=== PATIENT | male | born 1985 | race Caucasian/White ===

== ENCOUNTER 2020-12-03 07:26 | Inpatient (IN) | payer BC ==
[2020-12-03] MEDS ORDERED: Rocuronium Bromide 10 MG/ML (10ML VIAL) ONE (07:34)
[2020-12-03] MEDS ORDERED: fentaNYL Citrate/PF 2,000 MCG in Sodium Chloride 0.9% 60 ML IV SCH (07:45)
[2020-12-03] MEDS ORDERED: Cefepime 2 GM VIAL ONE (07:58)
[2020-12-03 08:17] LABS: ALT (SGPT) 193 U/L (8-55); AST (SGOT) 86 U/L (5-34); Alkaline Phosphatase 154 U/L (40-110); Anion Gap 23 mmol/L (10-20); BUN (Urea Nitrogen) 21 mg/dL (8.9-20.6); Bilirubin, Total 2.2 mg/dL (0.2-1.2); CK (CPK) 231 U/L (30-200); Calc. Creatinine Clearance 0 mL/min (70-130); Calcium 8.5 mg/dL (7.8-10.44); Carbon Dioxide 19 mmol/L (22-29); Chloride 99 mmol/L (98-107); Globulin 3.5 g/dL (2.4-3.5); Glucose 133 mg/dL (70-105); Lipase 40 U/L (8-78); Potassium 3.5 mmol/L (3.5-5.1); Protein, Total 7.5 g/dL (6.0-8.3); Sodium 137 mmol/L (136-145)
[2020-12-03] MEDS ORDERED: Dexamethasone 10 MG/ML VIAL ONE (08:24)
[2020-12-03] MEDS ORDERED: Aspirin 300 MG Suppository ONE (08:24)
[2020-12-03] MEDS ORDERED: Vancomycin 1 GM/200 ML BAG ONE (08:24)
[2020-12-03 08:33] LABS: Hemoglobin 17.1 g/dL (14.0-18.0); Mean Corpuscular HGB CONC 32.7 g/dL (32.0-36.0); Mean Corpuscular Hemoglobin 30.9 pg (27.0-31.0); Mean Corpuscular Volume 94.5 fL (78.0-98.0); Red Blood Cell (RBC) Count 5.53 mill/uL (4.70-6.10)
[2020-12-03] MEDS ORDERED: Aspirin Chewable 81 MG TAB ONE (08:33)
[2020-12-03] MEDS ORDERED: Enoxaparin Sodium 100 MG/ML SYRINGE ONE (08:33)
[2020-12-03 08:34] LABS: Actual Bicarbonate (HCO3a) 25.8 mEq/L (22-28); Analyzer IN Cardio ER; Base Excess (BEa) -5.2 mEq/L (-2.0 to +3.0); Carboxyhemoglobin (COHb) 0.2 gm% (0.0-3.0); Hemoglobin (Hb) 17.6 g/dL (14.0-18.0); O2 Tension (PaO2), arterial 97.7 mmHg (80.0-100.0); Potassium - ABG Lab 3.68 mmol/L (3.70-5.30)
[2020-12-03 08:45] LABS: CO2 Tension 74.1 mmHg (35.0-45.0); Puncture Site RRA; pH, Arterial 7.16 (7.35-7.45)
[2020-12-03 08:46] LABS: ALV-art Gradient 522.675 mmHg (0-20)
[2020-12-03 08:52] LABS: Band 11 % (5-11); Lymphocytes 11 % (21-51); MDiff Complete? YES; Mean Platelet Volume 8.7 fL (7.4-10.4); Monocytes 4 % (0-10); Myelocyte 1 % (0-0); Neutrophil 68 % (42-75); Platelet Count 117 thou/uL (130-400); Platelet Morphology Comment Appears Decreased; RBC Distribution Width 11.6 % (11.5-14.5); RBC Morphology Normal; Reactive Lymphocytes 5 % (0-10)
[2020-12-03 09:05] LABS: CKMB 0.9 ng/mL (0-6.6)
[2020-12-03] MEDS ORDERED: Propofol 1,000 MG/100 ML VIAL IV ONE (09:16)
[2020-12-03] MEDS ORDERED: Communication Order-Pharmacy FS ONE (09:31)
[2020-12-03] MEDS ORDERED: ABX IVPB PRN (09:32)
[2020-12-03] MEDS ORDERED: Acetaminophen 650 MG/20.3 ML UDCUP PO PRN (09:37)
[2020-12-03] MEDS ORDERED: Acetaminophen 650 MG Suppository PR PRN (09:37)
[2020-12-03] MEDS ORDERED: Bisacodyl 10 MG SUPP PR PRN (09:37)
[2020-12-03] MEDS ORDERED: Electrolyte Replacement Protocol 1 EACH IVPB ONE (09:37)
[2020-12-03] MEDS ORDERED: Sodium Chloride 0.9% 1,000 ML IV SCH (09:45)
[2020-12-03] MEDS ORDERED: Ventilator Sedation Protocol 1 EACH FS SCH (09:45)
[2020-12-03] MEDS ORDERED: Vecuronium 10 MG VIAL ONE ×2 (09:46→12:12)
[2020-12-03] MEDS ORDERED: Sterile Water 10 ML ONE ×2 (09:47→19:57)
[2020-12-03 09:48] LABS: INR-International Normal Ratio 1.5; PTT 28.8 sec (22.9-36.1)
[2020-12-03] MEDS ORDERED: Fentanyl BOLUS 250 ML IVPB PRN (10:00)
[2020-12-03] MEDS ORDERED: Morphine 2 MG/ML VIAL SLOW IVP PRN (10:00)
[2020-12-03] MEDS ORDERED: Propofol BOLUS 1,000 MG/100 ML VIAL IV PRN (10:00)
[2020-12-03 11:18] LABS: Actual Bicarbonate (HCO3a) 25.4 mEq/L (22-28); Base Excess (BEa) -4.3 mEq/L (-2.0 to +3.0); Calcium, Ionized (arterial) 1.08 mmol/L (1.12-1.30); Carboxyhemoglobin (COHb) 0.5 gm% (0.0-3.0); Hemoglobin (Hb) 16.3 g/dL (14.0-18.0); O2 Tension (PaO2), arterial 92.1 mmHg (80.0-100.0); Potassium - ABG Lab 4.37 mmol/L (3.70-5.30)
[2020-12-03 11:20] LABS: ALV-art Gradient 324.375 mmHg (0-20); CO2 Tension 66.1 mmHg (35.0-45.0); Puncture Site RRA
[2020-12-03] MEDS ORDERED: Electrolyte Replacement Protocol FS PRN (11:30)
[2020-12-03 11:33] LABS: Magnesium 2.2 mg/dL (1.6-2.6); Phosphorus 4.7 mg/dL (2.3-4.7)
[2020-12-03] MEDS: Lactated Ringer's 500 ML IV SCH ×2 (11:45→20:09)
[2020-12-03] MEDS: Propofol 1,000 MG/100 ML VIAL IV PRN ×3 (11:45→20:08)
[2020-12-03] MEDS ORDERED: Potassium Chloride 40 MEQ in Sodium Chloride 0.9% 250 ML 250 ML IVPB SCH (12:00)
[2020-12-03] MEDS ORDERED: Vecuronium 10 MG VIAL IV SCH (12:15)
[2020-12-03] MEDS: Lorazepam 2 MG/ML VIAL SLOW IVP PRN (12:16)
[2020-12-03] MEDS: Aspirin Chewable 81 MG TAB PO SCH (13:00)
[2020-12-03] MEDS ORDERED: Iopamidol-370 76% 500 ML 1 ML ONE (13:28)
[2020-12-03] MEDS: Vecuronium 10 MG VIAL IV PRN ×3 (14:09→23:23)
[2020-12-03] MEDS: VANCOMYCIN 1.75 GM/350 ML BAG 1.75 GM in Premix Bag 1 BAG IVPB SCH (16:02)
[2020-12-03] MEDS ORDERED: Insulin Regular 300 UNITS/3 ML VIAL SC PRN (16:03)
[2020-12-03] MEDS ORDERED: Dextrose 5% in Water 1,000 ML IV PRN (16:03)
[2020-12-03] MEDS ORDERED: Dextrose 50% Abboject 50 ML SYRINGE SLOW IVP PRN (16:03)
[2020-12-03] MEDS: Insulin Regular 300 UNITS/3 ML VIAL SC PRN (16:17)
[2020-12-03 18:35] LABS: Hemoglobin 14.8 g/dL (14.0-18.0); Platelet Count 79 thou/uL (130-400)
[2020-12-03 18:49] LABS: Anion Gap 11 mmol/L (10-20); BUN (Urea Nitrogen) 17 mg/dL (8.9-20.6); Calc. Creatinine Clearance 176 mL/min (70-130); Calcium 7.6 mg/dL (7.8-10.44); Carbon Dioxide 23 mmol/L (22-29); Chloride 106 mmol/L (98-107); Glucose 168 mg/dL (70-105); Potassium 6.1 mmol/L (3.5-5.1); Sodium 134 mmol/L (136-145)
[2020-12-03] MEDS ORDERED: Fentanyl CADD 100 ML ONE (19:58)
[2020-12-03] MEDS: Cefepime 2 GM in Sodium Chloride 0.9% 100 ML IVPB SCH (20:08)
[2020-12-03] MEDS: Fentanyl CADD 100 ML IV SCH (20:08)
[2020-12-03] MEDS: Pantoprazole 40 MG VIAL IVP SCH (20:08)
[2020-12-03 20:12] LABS: Fibrinogen 363 mg/dL (253-463)
[2020-12-03 20:13] LABS: INR-International Normal Ratio 1.6; PTT 37.6 sec (22.9-36.1); Prothrombin Time 18.6 sec (12.0-14.7)
[2020-12-03 20:29] LABS: D-Dimer Test Greater than 20.00 *mcg/mL (0.27-0.43)
[2020-12-03 20:49] LABS: FSP-Qualitative ABNORMAL (Normal); FSP-Semiquantitative >320 mcg/mL (Less than 5)
[2020-12-03 20:50] LABS: Platelet Count 76 thou/uL (130-400)
[2020-12-03] MEDS ORDERED: Famotidine 40 MG/5 ML Oral Suspension PER TUBE SCH (21:00)
[2020-12-03] MEDS ORDERED: Enoxaparin Sodium 100 MG/ML SYRINGE SC SCH (21:00)
[2020-12-03] MEDS ORDERED: Famotidine/PF 20 mg/2ml Vial SLOW IVP SCH (21:00)
[2020-12-03] MEDS ORDERED: Pantoprazole 40 MG VIAL IVP SCH (21:00)
[2020-12-03 22:06] LABS: Potassium 5.8 mmol/L (3.5-5.1)
[2020-12-03] MEDS ORDERED: Insulin Regular 300 UNITS/3 ML VIAL IVP SCH (22:30)
[2020-12-03] MEDS ORDERED: Calcium Gluconate 4.6 MEQ in Sodium Chloride 0.9% 100 ML IVPB SCH (22:30)
[2020-12-03] MEDS ORDERED: Dextrose 50% Abboject 50 ML SYRINGE SLOW IVP SCH (22:30)
[2020-12-03] MEDS ORDERED: Furosemide 20 MG/2 ML VIAL SLOW IVP SCH (22:30)
[2020-12-04] MEDS ORDERED: Sterile Water 10 ML ONE ×3 (00:35→20:53)
[2020-12-04] MEDS: Propofol 1,000 MG/100 ML VIAL IV PRN ×4 (00:44→20:47)
[2020-12-04] MEDS: Vecuronium 10 MG VIAL IV PRN ×9 (00:44→20:48)
[2020-12-04] MEDS: VANCOMYCIN 1.75 GM/350 ML BAG 1.75 GM in Premix Bag 1 BAG IVPB SCH ×3 (00:44→15:46)
[2020-12-04 04:21] LABS: Hemoglobin 14.7 g/dL (14.0-18.0); Mean Corpuscular HGB CONC 33.9 g/dL (32.0-36.0); Mean Corpuscular Hemoglobin 32.1 pg (27.0-31.0); Mean Corpuscular Volume 94.8 fL (78.0-98.0); Mean Platelet Volume 9.4 fL (7.4-10.4); Platelet Count 99 thou/uL (130-400); RBC Distribution Width 11.7 % (11.5-14.5); Red Blood Cell (RBC) Count 4.57 mill/uL (4.70-6.10); White Blood Cell (WBC) Count 14.9 thou/uL (4.8-10.8)
[2020-12-04 04:35] LABS: ALT (SGPT) 121 U/L (8-55); AST (SGOT) 36 U/L (5-34); Albumin 3.2 g/dL (3.5-5.0); Alkaline Phosphatase 102 U/L (40-110); Anion Gap 11 mmol/L (10-20); BUN (Urea Nitrogen) 16 mg/dL (8.9-20.6); CRP (Inflammatory) 20.26 mg/dL (= or < 0.5); Calc. Creatinine Clearance 181 mL/min (70-130); Calcium 8.3 mg/dL (7.8-10.44); Carbon Dioxide 25 mmol/L (22-29); Chloride 104 mmol/L (98-107); Glucose 98 mg/dL (70-105); Potassium 5.2 mmol/L (3.5-5.1); Protein, Total 6.2 g/dL (6.0-8.3); Sodium 135 mmol/L (136-145)
[2020-12-04 04:36] LABS: Magnesium 2.5 mg/dL (1.6-2.6)
[2020-12-04 04:39] LABS: Critical Call Chem Troponin I RESULT DECREASING
[2020-12-04 04:48] LABS: Fibrinogen 378 mg/dL (253-463)
[2020-12-04 04:50] LABS: INR-International Normal Ratio 1.3; PTT 32.3 sec (22.9-36.1); Prothrombin Time 16.5 sec (12.0-14.7)
[2020-12-04 05:03] LABS: CKMB 7.6 ng/mL (0-6.6)
[2020-12-04] MEDS: Lactated Ringer's 500 ML IV SCH ×2 (05:53→17:57)
[2020-12-04 06:19] LABS: Band 18 % (5-11); Lymphocytes 4 % (21-51); MDiff Complete? YES; Monocytes 7 % (0-10); Neutrophil 71 % (42-75); Platelet Morphology Comment Appears Decreased
[2020-12-04 06:20] LABS: Band 18 % (5-11); Hemoglobin 14.7 g/dL (14.0-18.0); Lymphocytes 4 % (21-51); MDiff Complete? YES; Mean Corpuscular HGB CONC 33.6 g/dL (32.0-36.0); Mean Corpuscular Hemoglobin 31.9 pg (27.0-31.0); Mean Platelet Volume 9.2 fL (7.4-10.4); Monocytes 7 % (0-10); Neutrophil 71 % (42-75); Platelet Count 94 thou/uL (130-400); Platelet Morphology Comment Appears Decreased; RBC Distribution Width 11.7 % (11.5-14.5); Red Blood Cell (RBC) Count 4.62 mill/uL (4.70-6.10)
[2020-12-04 06:33] LABS: D-Dimer Test Greater than 20.00 *mcg/mL (0.27-0.43)
[2020-12-04 07:55] LABS: Actual Bicarbonate (HCO3a) 21.7 mEq/L (22-28); Analyzer IN Cardio ER; Base Excess (BEa) -3.5 mEq/L (-2.0 to +3.0); Calcium, Ionized (arterial) 1.19 mmol/L (1.12-1.30); Carboxyhemoglobin (COHb) 0.3 gm% (0.0-3.0); O2 Tension (PaO2), arterial 76.1 mmHg (80.0-100.0); Potassium - ABG Lab 4.65 mmol/L (3.70-5.30); pH, Arterial 7.35 (7.35-7.45)
[2020-12-04 08:00] LABS: Hemoglobin (Hb) 20.1 g/dL (14.0-18.0); Puncture Site RRA
[2020-12-04] MEDS: Pantoprazole 40 MG VIAL IVP SCH ×2 (08:02→20:51)
[2020-12-04] MEDS: Enoxaparin Sodium 100 MG/ML SYRINGE SC SCH ×2 (08:02→20:48)
[2020-12-04] MEDS: Lorazepam 2 MG/ML VIAL SLOW IVP PRN ×5 (08:02→17:58)
[2020-12-04] MEDS: Dexamethasone 10 MG/ML VIAL SLOW IVP SCH (08:02)
[2020-12-04] MEDS: Ascorbic Acid 500 mg Chewable Tablet PER TUBE SCH (08:03)
[2020-12-04] MEDS: Cholecalciferol 1,000 UNITS (25 MCG) TAB PER TUBE SCH (08:03)
[2020-12-04] MEDS: Zinc Sulfate 220 MG CAP PER TUBE SCH (08:03)
[2020-12-04] MEDS: Cefepime 2 GM in Sodium Chloride 0.9% 100 ML IVPB SCH ×2 (08:03→20:49)
[2020-12-04 08:36] LABS: Vancomycin, Trough 17.7 ug/mL
[2020-12-04] MEDS: Aspirin Chewable 81 MG TAB PO SCH (12:44)
[2020-12-04 12:55] LABS: Hemoglobin 13.9 g/dL (14.0-18.0); Platelet Count 135 thou/uL (130-400)
[2020-12-04] MEDS ORDERED: Fentanyl CADD 100 ML ONE (13:02)
[2020-12-04 18:14] LABS: Hemoglobin 13.7 g/dL (14.0-18.0); Mean Corpuscular Hemoglobin 31.4 pg (27.0-31.0); Platelet Count 137 thou/uL (130-400); RBC Distribution Width 11.6 % (11.5-14.5); Red Blood Cell (RBC) Count 4.37 mill/uL (4.70-6.10); White Blood Cell (WBC) Count 14.4 thou/uL (4.8-10.8)
[2020-12-04 18:26] LABS: Anion Gap 11 mmol/L (10-20); BUN (Urea Nitrogen) 18 mg/dL (8.9-20.6); Calc. Creatinine Clearance 191 mL/min (70-130); Calcium 7.8 mg/dL (7.8-10.44); Carbon Dioxide 20 mmol/L (22-29); Chloride 107 mmol/L (98-107); Glucose 105 mg/dL (70-105); Potassium 5.3 mmol/L (3.5-5.1); Sodium 133 mmol/L (136-145)
[2020-12-04 18:54] LABS: Band 11 % (5-11); Lymphocytes 2 % (21-51); MDiff Complete? YES; Monocytes 5 % (0-10); Neutrophil 82 % (42-75); Platelet Morphology Comment Appears Adequate; Polychromasia SLIGHT = 2-3 cells (100X) (0-2/hpf)
[2020-12-04] MEDS: Senokot S 8.6-50 MG TAB PO SCH (20:51)
[2020-12-05] MEDS ORDERED: Sterile Water 10 ML ONE ×3 (00:35→06:30)
[2020-12-05] MEDS: Vecuronium 10 MG VIAL IV PRN ×5 (00:37→08:26)
[2020-12-05] MEDS: VANCOMYCIN 1.75 GM/350 ML BAG 1.75 GM in Premix Bag 1 BAG IVPB SCH ×2 (00:39→07:52)
[2020-12-05] MEDS: Propofol 1,000 MG/100 ML VIAL IV PRN ×6 (02:56→22:48)
[2020-12-05] MEDS: Lactated Ringer's 500 ML IV SCH (02:56)
[2020-12-05] MEDS ORDERED: Fentanyl CADD 100 ML ONE ×2 (04:02→17:20)
[2020-12-05] MEDS: Fentanyl CADD 100 ML IV SCH ×2 (04:33→17:29)
[2020-12-05] MEDS: Dexamethasone 10 MG/ML VIAL SLOW IVP SCH (07:52)
[2020-12-05] MEDS: Lorazepam 2 MG/ML VIAL SLOW IVP PRN ×2 (07:52→11:12)
[2020-12-05] MEDS: Ascorbic Acid 500 mg Chewable Tablet PER TUBE SCH (07:53)
[2020-12-05] MEDS: Zinc Sulfate 220 MG CAP PER TUBE SCH (07:53)
[2020-12-05] MEDS: Senokot S 8.6-50 MG TAB PO SCH ×2 (07:53→21:06)
[2020-12-05] MEDS: Polyethylene Glycol 3350 17 GM Packet PER TUBE SCH (07:53)
[2020-12-05] MEDS: Cefepime 2 GM in Sodium Chloride 0.9% 100 ML IVPB SCH ×2 (07:53→21:06)
[2020-12-05] MEDS: Pantoprazole 40 MG VIAL IVP SCH ×2 (07:54→21:10)
[2020-12-05] MEDS: Enoxaparin Sodium 100 MG/ML SYRINGE SC SCH ×2 (07:54→21:08)
[2020-12-05 08:24] LABS: Actual Bicarbonate (HCO3a) 22.6 mEq/L (22-28); Base Excess (BEa) -2.3 mEq/L (-2.0 to +3.0); CO2 Tension 39.5 mmHg (35.0-45.0); Calcium, Ionized (arterial) 1.13 mmol/L (1.12-1.30); O2 Tension (PaO2), arterial 72.9 mmHg (80.0-100.0); Potassium - ABG Lab 4.24 mmol/L (3.70-5.30); pH, Arterial 7.38 (7.35-7.45)
[2020-12-05] MEDS: Cholecalciferol 1,000 UNITS (25 MCG) TAB PER TUBE SCH (10:22)
[2020-12-05 10:41] LABS: ALV-art Gradient 162.925 mmHg (0-20); Puncture Site RRA
[2020-12-05] MEDS ORDERED: Dexamethasone 4 mg/ml Vial SLOW IVP SCH (10:45)
[2020-12-05] MEDS ORDERED: Furosemide 20 MG/2 ML VIAL SLOW IVP SCH (10:45)
[2020-12-05 11:23] LABS: Hemoglobin 13.8 g/dL (14.0-18.0); Mean Corpuscular HGB CONC 34.4 g/dL (32.0-36.0); Mean Corpuscular Hemoglobin 31.8 pg (27.0-31.0); Mean Corpuscular Volume 92.5 fL (78.0-98.0); Mean Platelet Volume 7.4 fL (7.4-10.4); Platelet Count 237 thou/uL (130-400); RBC Distribution Width 11.2 % (11.5-14.5); Red Blood Cell (RBC) Count 4.36 mill/uL (4.70-6.10); White Blood Cell (WBC) Count 10.9 thou/uL (4.8-10.8)
[2020-12-05 11:41] LABS: ALT (SGPT) 78 U/L (8-55); AST (SGOT) 40 U/L (5-34); Albumin 2.9 g/dL (3.5-5.0); Alkaline Phosphatase 81 U/L (40-110); Anion Gap 11 mmol/L (10-20); BUN (Urea Nitrogen) 25 mg/dL (8.9-20.6); Calc. Creatinine Clearance 196 mL/min (70-130); Carbon Dioxide 22 mmol/L (22-29); Chloride 106 mmol/L (98-107); Globulin 2.8 g/dL (2.4-3.5); Glucose 114 mg/dL (70-105); Magnesium 2.1 mg/dL (1.6-2.6); Phosphorus 3.3 mg/dL (2.3-4.7); Potassium 4.4 mmol/L (3.5-5.1); Protein, Total 5.7 g/dL (6.0-8.3); Sodium 135 mmol/L (136-145)
[2020-12-05 11:42] LABS: Band 5 % (5-11); Lymphocytes 3 % (21-51); MDiff Complete? YES; Monocytes 2 % (0-10); Neutrophil 87 % (42-75); Platelet Morphology Comment Appears Adequate; RBC Morphology Normal; Reactive Lymphocytes 3 % (0-10)
[2020-12-05] MEDS: Aspirin Chewable 81 MG TAB PO SCH (14:07)
[2020-12-06] MEDS: Propofol 1,000 MG/100 ML VIAL IV PRN ×6 (01:45→23:15)
[2020-12-06 05:08] LABS: Hemoglobin 14.5 g/dL (14.0-18.0); Mean Corpuscular HGB CONC 34.9 g/dL (32.0-36.0); Mean Corpuscular Hemoglobin 32.2 pg (27.0-31.0); Mean Corpuscular Volume 92.5 fL (78.0-98.0); Mean Platelet Volume 7.8 fL (7.4-10.4); Platelet Count 270 thou/uL (130-400); RBC Distribution Width 11.4 % (11.5-14.5); Red Blood Cell (RBC) Count 4.51 mill/uL (4.70-6.10); White Blood Cell (WBC) Count 13.9 thou/uL (4.8-10.8)
[2020-12-06] MEDS ORDERED: Fentanyl CADD 100 ML ONE ×2 (05:12→16:08)
[2020-12-06 05:19] LABS: ALT (SGPT) 91 U/L (8-55); AST (SGOT) 63 U/L (5-34); Albumin 3.2 g/dL (3.5-5.0); Alkaline Phosphatase 88 U/L (40-110); Anion Gap 12 mmol/L (10-20); BUN (Urea Nitrogen) 24 mg/dL (8.9-20.6); Bilirubin, Total 1.6 mg/dL (0.2-1.2); Calc. Creatinine Clearance 179 mL/min (70-130); Calcium 8.1 mg/dL (7.8-10.44); Carbon Dioxide 24 mmol/L (22-29); Chloride 104 mmol/L (98-107); Globulin 2.8 g/dL (2.4-3.5); Glucose 105 mg/dL (70-105); Magnesium 2.4 mg/dL (1.6-2.6); Phosphorus 3.3 mg/dL (2.3-4.7); Potassium 4.8 mmol/L (3.5-5.1); Sodium 135 mmol/L (136-145)
[2020-12-06 05:37] LABS: Band 6 % (5-11); Lymphocytes 3 % (21-51); MDiff Complete? YES; Monocytes 6 % (0-10); Neutrophil 84 % (42-75); Reactive Lymphocytes 1 % (0-10)
[2020-12-06 08:12] LABS: Actual Bicarbonate (HCO3a) 26.7 mEq/L (22-28); Base Excess (BEa) 2.4 mEq/L (-2.0 to +3.0); CO2 Tension 40.5 mmHg (35.0-45.0); Calcium, Ionized (arterial) 1.13 mmol/L (1.12-1.30); Carboxyhemoglobin (COHb) 0.8 gm% (0.0-3.0); Hemoglobin (Hb) 14.6 g/dL (14.0-18.0); Potassium - ABG Lab 4.25 mmol/L (3.70-5.30); pH, Arterial 7.44 (7.35-7.45)
[2020-12-06 08:16] LABS: ALV-art Gradient 174.975 mmHg (0-20); O2 Tension (PaO2), arterial 59.6 mmHg (80.0-100.0); Puncture Site RRA
[2020-12-06] MEDS: Enoxaparin Sodium 100 MG/ML SYRINGE SC SCH (08:42)
[2020-12-06] MEDS: Cefepime 2 GM in Sodium Chloride 0.9% 100 ML IVPB SCH ×2 (08:43→21:17)
[2020-12-06] MEDS: Polyethylene Glycol 3350 17 GM Packet PER TUBE SCH (08:43)
[2020-12-06] MEDS: Senokot S 8.6-50 MG TAB PO SCH ×2 (08:44→21:17)
[2020-12-06] MEDS: Zinc Sulfate 220 MG CAP PER TUBE SCH (08:44)
[2020-12-06] MEDS: Pantoprazole 40 MG VIAL IVP SCH ×2 (08:44→21:17)
[2020-12-06] MEDS: Dexamethasone 20 MG in Sodium Chloride 0.9% 50 ML IVPB SCH (08:44)
[2020-12-06] MEDS: Lorazepam 2 MG/ML VIAL SLOW IVP PRN ×3 (09:37→21:47)
[2020-12-06] MEDS: Vecuronium 10 MG VIAL IV PRN ×3 (13:41→21:47)
[2020-12-06] MEDS: Aspirin Chewable 81 MG TAB PO SCH (14:24)
[2020-12-06] MEDS: Fentanyl CADD 100 ML IV SCH (16:08)
[2020-12-07] MEDS: Propofol 1,000 MG/100 ML VIAL IV PRN ×7 (03:01→22:17)
[2020-12-07] MEDS: Lorazepam 2 MG/ML VIAL SLOW IVP PRN ×3 (03:52→22:18)
[2020-12-07] MEDS: Vecuronium 10 MG VIAL IV PRN ×4 (03:52→22:18)
[2020-12-07] MEDS ORDERED: Fentanyl CADD 100 ML ONE (04:06)
[2020-12-07 05:24] LABS: Band 3 % (5-11); Hemoglobin 14.8 g/dL (14.0-18.0); Lymphocytes 13 % (21-51); MDiff Complete? YES; Mean Corpuscular HGB CONC 34.8 g/dL (32.0-36.0); Mean Corpuscular Hemoglobin 32.3 pg (27.0-31.0); Mean Corpuscular Volume 92.8 fL (78.0-98.0); Mean Platelet Volume 7.4 fL (7.4-10.4); Monocytes 14 % (0-10); Neutrophil 70 % (42-75); Platelet Count 324 thou/uL (130-400); Platelet Morphology Comment Appears Adequate; RBC Distribution Width 11.4 % (11.5-14.5); RBC Morphology Normal; Red Blood Cell (RBC) Count 4.59 mill/uL (4.70-6.10); White Blood Cell (WBC) Count 14.8 thou/uL (4.8-10.8)
[2020-12-07 05:28] LABS: ALT (SGPT) 149 U/L (8-55); AST (SGOT) 79 U/L (5-34); Albumin 3.1 g/dL (3.5-5.0); Alkaline Phosphatase 85 U/L (40-110); Anion Gap 10 mmol/L (10-20); BUN (Urea Nitrogen) 23 mg/dL (8.9-20.6); Bilirubin, Total 1.4 mg/dL (0.2-1.2); Calc. Creatinine Clearance 172 mL/min (70-130); Carbon Dioxide 27 mmol/L (22-29); Chloride 103 mmol/L (98-107); Globulin 2.5 g/dL (2.4-3.5); Glucose 89 mg/dL (70-105); Magnesium 2.2 mg/dL (1.6-2.6); Phosphorus 2.9 mg/dL (2.3-4.7); Potassium 4.3 mmol/L (3.5-5.1); Protein, Total 5.6 g/dL (6.0-8.3); Sodium 136 mmol/L (136-145)
[2020-12-07] MEDS: Cefepime 2 GM in Sodium Chloride 0.9% 100 ML IVPB SCH ×2 (07:46→20:59)
[2020-12-07] MEDS: Polyethylene Glycol 3350 17 GM Packet PER TUBE SCH (07:47)
[2020-12-07] MEDS: Zinc Sulfate 220 MG CAP PER TUBE SCH (07:47)
[2020-12-07] MEDS: Senokot S 8.6-50 MG TAB PO SCH ×2 (07:47→21:02)
[2020-12-07] MEDS: Pantoprazole 40 MG VIAL IVP SCH ×2 (07:48→21:01)
[2020-12-07 08:03] LABS: Actual Bicarbonate (HCO3a) 26.8 mEq/L (22-28); Base Excess (BEa) 1.9 mEq/L (-2.0 to +3.0); CO2 Tension 42.7 mmHg (35.0-45.0); Calcium, Ionized (arterial) 1.13 mmol/L (1.12-1.30); Carboxyhemoglobin (COHb) 0.8 gm% (0.0-3.0); Hemoglobin (Hb) 14.9 g/dL (14.0-18.0); Potassium - ABG Lab 3.96 mmol/L (3.70-5.30); pH, Arterial 7.42 (7.35-7.45)
[2020-12-07 08:04] LABS: O2 Tension (PaO2), arterial 55.7 mmHg (80.0-100.0); Puncture Site LRA
[2020-12-07 08:05] LABS: ALV-art Gradient 140.475 mmHg (0-20)
[2020-12-07] MEDS: Dexamethasone 20 MG in Sodium Chloride 0.9% 50 ML IVPB SCH (09:19)
[2020-12-07] MEDS ORDERED: Enoxaparin Sodium 100 MG/ML SYRINGE SC SCH ×2 (10:00→10:30)
[2020-12-07] MEDS: Fentanyl CADD 100 ML IV SCH (13:49)
[2020-12-07] MEDS: Aspirin Chewable 81 MG TAB PO SCH (14:13)
[2020-12-07] MEDS: Enoxaparin Sodium 100 MG/ML SYRINGE SC SCH (21:01)
[2020-12-08] MEDS: Vecuronium 10 MG VIAL IV PRN ×5 (00:06→08:53)
[2020-12-08] MEDS: Lorazepam 2 MG/ML VIAL SLOW IVP PRN ×9 (00:06→19:33)
[2020-12-08] MEDS ORDERED: Fentanyl CADD 100 ML ONE ×3 (01:52→23:33)
[2020-12-08] MEDS: Propofol 1,000 MG/100 ML VIAL IV PRN ×5 (02:44→23:37)
[2020-12-08 04:25] LABS: Hemoglobin 13.3 g/dL (14.0-18.0); Mean Corpuscular HGB CONC 36.1 g/dL (32.0-36.0); Mean Corpuscular Volume 91.5 fL (78.0-98.0); Mean Platelet Volume 7.3 fL (7.4-10.4); Platelet Count 320 thou/uL (130-400); RBC Distribution Width 11.4 % (11.5-14.5); Red Blood Cell (RBC) Count 4.02 mill/uL (4.70-6.10)
[2020-12-08 04:34] LABS: ALT (SGPT) 198 U/L (8-55); AST (SGOT) 82 U/L (5-34); Albumin 2.9 g/dL (3.5-5.0); Alkaline Phosphatase 76 U/L (40-110); Anion Gap 7 mmol/L (10-20); BUN (Urea Nitrogen) 13 mg/dL (8.9-20.6); Bilirubin, Total 1.1 mg/dL (0.2-1.2); Calc. Creatinine Clearance 203 mL/min (70-130); Calcium 7.6 mg/dL (7.8-10.44); Carbon Dioxide 26 mmol/L (22-29); Chloride 106 mmol/L (98-107); Globulin 2.2 g/dL (2.4-3.5); Glucose 89 mg/dL (70-105); Magnesium 2.1 mg/dL (1.6-2.6); Phosphorus 2.9 mg/dL (2.3-4.7); Protein, Total 5.1 g/dL (6.0-8.3); Sodium 135 mmol/L (136-145)
[2020-12-08 04:44] LABS: Band 1 % (5-11); Eosinophils 3 % (0-10); Lymphocytes 19 % (21-51); MDiff Complete? YES; Metamyelocyte 2 % (0-0); Monocytes 8 % (0-10); Myelocyte 2 % (0-0); Neutrophil 65 % (42-75); Platelet Morphology Comment Appears Adequate
[2020-12-08] MEDS: Pantoprazole 40 MG VIAL IVP SCH ×2 (07:53→20:12)
[2020-12-08] MEDS: Senokot S 8.6-50 MG TAB PO SCH ×2 (07:53→20:12)
[2020-12-08] MEDS: Polyethylene Glycol 3350 17 GM Packet PER TUBE SCH (07:53)
[2020-12-08] MEDS: Zinc Sulfate 220 MG CAP PER TUBE SCH (07:53)
[2020-12-08 08:08] LABS: Actual Bicarbonate (HCO3a) 23.2 mEq/L (22-28); Base Excess (BEa) 0.8 mEq/L (-2.0 to +3.0); CO2 Tension 30.9 mmHg (35.0-45.0); Calcium, Ionized (arterial) 1.11 mmol/L (1.12-1.30); Carboxyhemoglobin (COHb) 0.6 gm% (0.0-3.0); Hemoglobin (Hb) 13.8 g/dL (14.0-18.0); O2 Tension (PaO2), arterial 62.3 mmHg (80.0-100.0); Potassium - ABG Lab 3.81 mmol/L (3.70-5.30); pH, Arterial 7.49 (7.35-7.45)
[2020-12-08] MEDS: Cefepime 2 GM in Sodium Chloride 0.9% 100 ML IVPB SCH ×2 (08:20→20:11)
[2020-12-08] MEDS: Enoxaparin Sodium 100 MG/ML SYRINGE SC SCH ×2 (08:25→20:11)
[2020-12-08 08:36] LABS: Puncture Site LBA
[2020-12-08 08:37] LABS: ALV-art Gradient 148.625 mmHg (0-20)
[2020-12-08] MEDS: Dexamethasone 20 MG in Sodium Chloride 0.9% 50 ML IVPB SCH (08:52)
[2020-12-08] MEDS: Fentanyl CADD 100 ML IV SCH ×2 (12:50→23:37)
[2020-12-08] MEDS: Aspirin Chewable 81 MG TAB PO SCH (14:17)
[2020-12-08] MEDS: Insulin Regular 300 UNITS/3 ML VIAL SC PRN (17:18)
[2020-12-09] MEDS: Lorazepam 2 MG/ML VIAL SLOW IVP PRN ×2 (03:50→22:27)
[2020-12-09] MEDS: Propofol 1,000 MG/100 ML VIAL IV PRN ×4 (04:28→18:07)
[2020-12-09 04:41] LABS: Band 7 % (5-11); Eosinophils 1 % (0-10); Hemoglobin 13.3 g/dL (14.0-18.0); Lymphocytes 16 % (21-51); MDiff Complete? YES; Mean Corpuscular HGB CONC 34.5 g/dL (32.0-36.0); Mean Corpuscular Hemoglobin 31.6 pg (27.0-31.0); Mean Corpuscular Volume 91.5 fL (78.0-98.0); Mean Platelet Volume 7.3 fL (7.4-10.4); Monocytes 8 % (0-10); Myelocyte 4 % (0-0); Neutrophil 64 % (42-75); Platelet Count 365 thou/uL (130-400); Platelet Morphology Comment Appears Adequate; RBC Distribution Width 11.5 % (11.5-14.5); White Blood Cell (WBC) Count 16.3 thou/uL (4.8-10.8)
[2020-12-09 04:44] LABS: ALT (SGPT) 258 U/L (8-55); AST (SGOT) 67 U/L (5-34); Alkaline Phosphatase 80 U/L (40-110); Anion Gap 10 mmol/L (10-20); BUN (Urea Nitrogen) 25 mg/dL (8.9-20.6); Bilirubin, Total 0.9 mg/dL (0.2-1.2); Calc. Creatinine Clearance 208 mL/min (70-130); Carbon Dioxide 23 mmol/L (22-29); Chloride 106 mmol/L (98-107); Globulin 2.4 g/dL (2.4-3.5); Glucose 94 mg/dL (70-105); Potassium 4.2 mmol/L (3.5-5.1); Protein, Total 5.4 g/dL (6.0-8.3); Sodium 135 mmol/L (136-145)
[2020-12-09 08:13] LABS: Actual Bicarbonate (HCO3a) 21.1 mEq/L (22-28); Base Excess (BEa) -2.1 mEq/L (-2.0 to +3.0); CO2 Tension 31.9 mmHg (35.0-45.0); Calcium, Ionized (arterial) 1.13 mmol/L (1.12-1.30); Carboxyhemoglobin (COHb) 0.5 gm% (0.0-3.0); Hemoglobin (Hb) 14.4 g/dL (14.0-18.0); O2 Tension (PaO2), arterial 60.2 mmHg (80.0-100.0); Potassium - ABG Lab 4.12 mmol/L (3.70-5.30); pH, Arterial 7.44 (7.35-7.45)
[2020-12-09 09:25] LABS: Puncture Site LRA
[2020-12-09 09:26] LABS: ALV-art Gradient 149.475 mmHg (0-20)
[2020-12-09] MEDS: Cefepime 2 GM in Sodium Chloride 0.9% 100 ML IVPB SCH (10:36)
[2020-12-09] MEDS: Dexamethasone 20 MG in Sodium Chloride 0.9% 50 ML IVPB SCH (10:36)
[2020-12-09] MEDS: Pantoprazole 40 MG VIAL IVP SCH ×2 (10:37→20:08)
[2020-12-09] MEDS: Zinc Sulfate 220 MG CAP PER TUBE SCH (10:37)
[2020-12-09] MEDS: Polyethylene Glycol 3350 17 GM Packet PER TUBE SCH (10:37)
[2020-12-09] MEDS: Senokot S 8.6-50 MG TAB PO SCH ×2 (10:37→20:08)
[2020-12-09] MEDS: Enoxaparin Sodium 100 MG/ML SYRINGE SC SCH ×2 (10:37→20:08)
[2020-12-09] MEDS: Fentanyl CADD 100 ML IV SCH ×2 (10:43→21:06)
[2020-12-09] MEDS: Aspirin Chewable 81 MG TAB PO SCH (13:25)
[2020-12-09] MEDS: Insulin Regular 300 UNITS/3 ML VIAL SC PRN (16:35)
[2020-12-09] MEDS ORDERED: Fentanyl CADD 100 ML ONE (20:59)
[2020-12-10 04:52] LABS: ALT (SGPT) 269 U/L (8-55); AST (SGOT) 60 U/L (5-34); Albumin 3.3 g/dL (3.5-5.0); Alkaline Phosphatase 92 U/L (40-110); Anion Gap 11 mmol/L (10-20); BUN (Urea Nitrogen) 27 mg/dL (8.9-20.6); Bilirubin, Total 1.1 mg/dL (0.2-1.2); Calc. Creatinine Clearance 213 mL/min (70-130); Calcium 8.1 mg/dL (7.8-10.44); Carbon Dioxide 22 mmol/L (22-29); Chloride 105 mmol/L (98-107); Globulin 2.4 g/dL (2.4-3.5); Glucose 100 mg/dL (70-105); Potassium 3.9 mmol/L (3.5-5.1); Protein, Total 5.7 g/dL (6.0-8.3); Sodium 134 mmol/L (136-145)
[2020-12-10 05:15] LABS: Band 2 % (5-11); Hemoglobin 13.9 g/dL (14.0-18.0); Lymphocytes 25 % (21-51); MDiff Complete? YES; Mean Corpuscular HGB CONC 34.7 g/dL (32.0-36.0); Mean Corpuscular Hemoglobin 31.7 pg (27.0-31.0); Mean Corpuscular Volume 91.5 fL (78.0-98.0); Mean Platelet Volume 7.5 fL (7.4-10.4); Metamyelocyte 2 % (0-0); Monocytes 7 % (0-10); Myelocyte 3 % (0-0); Neutrophil 57 % (42-75); Platelet Count 382 thou/uL (130-400); Platelet Morphology Comment Appears Adequate; RBC Distribution Width 11.7 % (11.5-14.5); RBC Morphology Normal; Reactive Lymphocytes 4 % (0-10); Red Blood Cell (RBC) Count 4.37 mill/uL (4.70-6.10); White Blood Cell (WBC) Count 18.4 thou/uL (4.8-10.8)
[2020-12-10 07:16] LABS: Base Excess (BEa) -1.1 mEq/L (-2.0 to +3.0); CO2 Tension 28.4 mmHg (35.0-45.0); Calcium, Ionized (arterial) 1.14 mmol/L (1.12-1.30); Carboxyhemoglobin (COHb) 0.6 gm% (0.0-3.0); Hemoglobin (Hb) 14.3 g/dL (14.0-18.0); O2 Tension (PaO2), arterial 66.9 mmHg (80.0-100.0); Potassium - ABG Lab 3.79 mmol/L (3.70-5.30); pH, Arterial 7.49 (7.35-7.45)
[2020-12-10] MEDS: Fentanyl CADD 100 ML IV SCH (07:22)
[2020-12-10 07:48] LABS: Puncture Site LRA
[2020-12-10] MEDS: Senokot S 8.6-50 MG TAB PO SCH ×2 (08:41→22:45)
[2020-12-10] MEDS: Enoxaparin Sodium 100 MG/ML SYRINGE SC SCH ×2 (08:42→22:44)
[2020-12-10] MEDS: Pantoprazole 40 MG VIAL IVP SCH ×2 (08:42→22:45)
[2020-12-10] MEDS: Zinc Sulfate 220 MG CAP PER TUBE SCH (08:42)
[2020-12-10] MEDS: Polyethylene Glycol 3350 17 GM Packet PER TUBE SCH (08:42)
[2020-12-10] MEDS ORDERED: Dexamethasone Sod Phosphate 20 MG in Sodium Chloride 0.9% 50 ML IVPB SCH (09:00)
[2020-12-10] MEDS: Aspirin Chewable 81 MG TAB PO SCH (15:17)
[2020-12-11 05:03] LABS: Band 2 % (5-11); Eosinophils 1 % (0-10); Hemoglobin 13.1 g/dL (14.0-18.0); Hypochromia SLIGHT = 6-15 cells (100X) (0-5/hpf); Lymphocytes 12 % (21-51); MDiff Complete? YES; Mean Corpuscular HGB CONC 35.6 g/dL (32.0-36.0); Mean Corpuscular Volume 92.8 fL (78.0-98.0); Mean Platelet Volume 7.3 fL (7.4-10.4); Monocytes 13 % (0-10); Neutrophil 71 % (42-75); Platelet Count 345 thou/uL (130-400); Platelet Morphology Comment Appears Adequate; RBC Distribution Width 11.9 % (11.5-14.5); Reactive Lymphocytes 1 % (0-10); Red Blood Cell (RBC) Count 3.98 mill/uL (4.70-6.10)
[2020-12-11 05:37] LABS: ALT (SGPT) 201 U/L (8-55); AST (SGOT) 52 U/L (5-34); Albumin 3.1 g/dL (3.5-5.0); Alkaline Phosphatase 82 U/L (40-110); Anion Gap 10 mmol/L (10-20); BUN (Urea Nitrogen) 25 mg/dL (8.9-20.6); Bilirubin, Total 1.3 mg/dL (0.2-1.2); Calc. Creatinine Clearance 211 mL/min (70-130); Calcium 8.3 mg/dL (7.8-10.44); Carbon Dioxide 24 mmol/L (22-29); Chloride 103 mmol/L (98-107); Globulin 2.3 g/dL (2.4-3.5); Glucose 77 mg/dL (70-105); Potassium 3.6 mmol/L (3.5-5.1); Protein, Total 5.4 g/dL (6.0-8.3); Sodium 133 mmol/L (136-145)
[2020-12-11] MEDS: Senokot S 8.6-50 MG TAB PO SCH ×2 (08:35→20:09)
[2020-12-11] MEDS: Polyethylene Glycol 3350 17 GM Packet PER TUBE SCH (08:35)
[2020-12-11] MEDS ORDERED: Dexamethasone 10 MG in Sodium Chloride 0.9% 50 ML IVPB SCH (09:00)
[2020-12-11] MEDS ORDERED: guaiFENesin 200 MG TAB PO PRN (09:00)
[2020-12-11] MEDS: Enoxaparin Sodium 100 MG/ML SYRINGE SC SCH (09:24)
[2020-12-11] MEDS: Benzonatate 100 MG CAP PO PRN (09:25)
[2020-12-11] MEDS: Zinc Sulfate 220 MG CAP PER TUBE SCH (09:25)
[2020-12-11] MEDS: Dexamethasone 4 mg/ml Vial SLOW IVP SCH (09:25)
[2020-12-11] MEDS: Aspirin Chewable 81 MG TAB PO SCH (14:58)
[2020-12-11] MEDS: Apixaban 5 MG TAB PO SCH (20:09)
[2020-12-12 06:15] VITALS: BMI 27.8
[2020-12-12] MEDS: Benzonatate 100 MG CAP PO PRN (06:21)
[2020-12-12 08:33] LABS: Hemoglobin 13.2 g/dL (14.0-18.0); Mean Corpuscular HGB CONC 35.1 g/dL (32.0-36.0); Mean Corpuscular Hemoglobin 32.3 pg (27.0-31.0); Mean Platelet Volume 7.1 fL (7.4-10.4); Platelet Count 379 thou/uL (130-400); RBC Distribution Width 12.1 % (11.5-14.5); White Blood Cell (WBC) Count 14.5 thou/uL (4.8-10.8)
[2020-12-12 08:36] LABS: ALT (SGPT) 133 U/L (8-55); AST (SGOT) 27 U/L (5-34); Albumin 3.3 g/dL (3.5-5.0); Alkaline Phosphatase 84 U/L (40-110); Anion Gap 9 mmol/L (10-20); BUN (Urea Nitrogen) 17 mg/dL (8.9-20.6); Bilirubin, Total 1.3 mg/dL (0.2-1.2); Calc. Creatinine Clearance 216 mL/min (70-130); Calcium 8.3 mg/dL (7.8-10.44); Carbon Dioxide 26 mmol/L (22-29); Chloride 103 mmol/L (98-107); Globulin 2.5 g/dL (2.4-3.5); Glucose 89 mg/dL (70-105); Potassium 3.8 mmol/L (3.5-5.1); Protein, Total 5.8 g/dL (6.0-8.3); Sodium 134 mmol/L (136-145)
[2020-12-12] MEDS: Senokot S 8.6-50 MG TAB PO SCH ×2 (08:41→20:23)
[2020-12-12] MEDS: Zinc Sulfate 220 MG CAP PER TUBE SCH (08:41)
[2020-12-12] MEDS: Dexamethasone 4 mg/ml Vial SLOW IVP SCH (08:41)
[2020-12-12] MEDS: Apixaban 5 MG TAB PO SCH ×2 (08:41→15:16)
[2020-12-12] MEDS: Polyethylene Glycol 3350 17 GM Packet PER TUBE SCH (08:44)
[2020-12-12 11:00] LABS: Band 3 % (5-11); Eosinophils 2 % (0-10); Lymphocytes 7 % (21-51); MDiff Complete? YES; Monocytes 7 % (0-10); Neutrophil 70 % (42-75); Platelet Morphology Comment Appears Adequate; Polychromasia SLIGHT = 2-3 cells (100X) (0-2/hpf); Reactive Lymphocytes 10 % (0-10)
[2020-12-12] MEDS: Aspirin Chewable 81 MG TAB PO SCH (14:06)
[2020-12-12 14:50] LABS: Bacteria/HPF None Seen HPF (None Seen); RBC/HPF Greater than 50 HPF (0-3); Squamous Epithelial None Seen HPF (0-3)
[2020-12-12] MEDS: Bacitracin 1 PK TOP SCH (20:48)
[2020-12-13 06:30] LABS: Eosinophils 1 % (0-10); Hemoglobin 13.9 g/dL (14.0-18.0); Hypochromia SLIGHT = 6-15 cells (100X) (0-5/hpf); Lymphocytes 20 % (21-51); MDiff Complete? YES; Mean Corpuscular HGB CONC 34.4 g/dL (32.0-36.0); Mean Corpuscular Hemoglobin 32.3 pg (27.0-31.0); Mean Corpuscular Volume 93.9 fL (78.0-98.0); Monocytes 7 % (0-10); Neutrophil 72 % (42-75); Platelet Count 365 thou/uL (130-400); Platelet Morphology Comment Appears Adequate; RBC Distribution Width 12.5 % (11.5-14.5); Red Blood Cell (RBC) Count 4.28 mill/uL (4.70-6.10); White Blood Cell (WBC) Count 12.1 thou/uL (4.8-10.8)
[2020-12-13 06:34] LABS: ALT (SGPT) 107 U/L (8-55); AST (SGOT) 26 U/L (5-34); Albumin 3.4 g/dL (3.5-5.0); Alkaline Phosphatase 78 U/L (40-110); Anion Gap 12 mmol/L (10-20); BUN (Urea Nitrogen) 19 mg/dL (8.9-20.6); Bilirubin, Total 1.2 mg/dL (0.2-1.2); Calc. Creatinine Clearance 198 mL/min (70-130); Calcium 8.5 mg/dL (7.8-10.44); Carbon Dioxide 23 mmol/L (22-29); Chloride 106 mmol/L (98-107); Globulin 2.5 g/dL (2.4-3.5); Glucose 80 mg/dL (70-105); Potassium 3.7 mmol/L (3.5-5.1); Protein, Total 5.9 g/dL (6.0-8.3); Sodium 137 mmol/L (136-145)
[2020-12-13] MEDS: Zinc Sulfate 220 MG CAP PER TUBE SCH (08:36)
[2020-12-13] MEDS: Apixaban 5 MG TAB PO SCH ×2 (08:36→20:45)
[2020-12-13] MEDS: Dexamethasone 4 mg/ml Vial SLOW IVP SCH (08:37)
[2020-12-13] MEDS: Polyethylene Glycol 3350 17 GM Packet PER TUBE SCH (08:37)
[2020-12-13] MEDS: Bacitracin 1 PK TOP SCH ×2 (08:37→20:46)
[2020-12-13] MEDS: Senokot S 8.6-50 MG TAB PO SCH ×2 (08:38→20:48)
[2020-12-13] MEDS: Aspirin Chewable 81 MG TAB PO SCH (14:16)
[2020-12-14] MEDS: Polyethylene Glycol 3350 17 GM Packet PER TUBE SCH (08:31)
[2020-12-14] MEDS: Senokot S 8.6-50 MG TAB PO SCH (08:32)
[2020-12-14] MEDS: Zinc Sulfate 220 MG CAP PER TUBE SCH (08:33)
[2020-12-14] MEDS: Apixaban 5 MG TAB PO SCH (08:34)
[2020-12-14] MEDS: Bacitracin 1 PK TOP SCH (08:34)
[2020-12-14] MEDS: Dexamethasone 4 mg/ml Vial SLOW IVP SCH (08:34)
[2020-12-14 10:08] LABS: ALT (SGPT) 111 U/L (8-55); AST (SGOT) 28 U/L (5-34); Albumin 3.8 g/dL (3.5-5.0); Alkaline Phosphatase 85 U/L (40-110); Anion Gap 11 mmol/L (10-20); BUN (Urea Nitrogen) 27 mg/dL (8.9-20.6); Bilirubin, Total 1.3 mg/dL (0.2-1.2); Calc. Creatinine Clearance 192 mL/min (70-130); Calcium 8.9 mg/dL (7.8-10.44); Carbon Dioxide 23 mmol/L (22-29); Chloride 108 mmol/L (98-107); Globulin 2.8 g/dL (2.4-3.5); Glucose 81 mg/dL (70-105); Potassium 3.7 mmol/L (3.5-5.1); Protein, Total 6.6 g/dL (6.0-8.3); Sodium 138 mmol/L (136-145)
[2020-12-14 11:09] LABS: Band 2 % (5-11); Eosinophils 1 % (0-10); Hemoglobin 14.5 g/dL (14.0-18.0); Lymphocytes 33 % (21-51); MDiff Complete? YES; Mean Corpuscular HGB CONC 36.2 g/dL (32.0-36.0); Mean Platelet Volume 7.3 fL (7.4-10.4); Metamyelocyte 2 % (0-0); Monocytes 10 % (0-10); Neutrophil 47 % (42-75); Platelet Count 316 thou/uL (130-400); Platelet Morphology Comment Appears Adequate; RBC Distribution Width 12.7 % (11.5-14.5); RBC Morphology Normal; Reactive Lymphocytes 5 % (0-10); Red Blood Cell (RBC) Count 4.27 mill/uL (4.70-6.10); White Blood Cell (WBC) Count 10.4 thou/uL (4.8-10.8)
[2020-12-14 12:23] VITALS: BP 124/80
[2020-12-14] MEDS ORDERED: Lidocaine 1% w/Epinephrine 1:100K 20 ML VIAL ONE (13:07)
[2020-12-14] MEDS ORDERED: Iothalamate Meglumine 60% 50 ML VIAL FS ONE (13:07)
[2020-12-14] MEDS ORDERED: Bupivacaine PF 0.5% 30 ML VIAL ONE (13:07)
[2020-12-14] MEDS: Aspirin Chewable 81 MG TAB PO SCH (14:24)
[2020-12-14 19:22] VITALS: TEMP 98.3
[2020-12-19] MEDS ORDERED: Apixaban 5 MG TAB PO SCH (09:00)
== END 2020-12-14 18:57 | disposition home or self-care (01) | DRG 870 ==
LOC: ERS 07:26 → CCU 09:18 → T4-B 12-11 17:04
PROVIDERS: ADMIT Internal Medicine; ATTEND Internal Medicine
PROC: XW033H5 Introduction of Tocilizumab into Peripheral Vein, Percutaneous Approach, New Technology Group 5 (ICD-10-PCS; principal; 2020-12-03)
PROC: 5A1955Z Respiratory Ventilation, Greater than 96 Consecutive Hours (ICD-10-PCS; 2020-12-03)
PROC: 8E0ZXY6 Isolation (ICD-10-PCS; 2020-12-03)
PROC: 0BH17EZ Insertion of Endotracheal Airway into Trachea, Via Natural or Artificial Opening (ICD-10-PCS; 2020-12-03)
PROC: 0D9670Z Drainage of Stomach with Drainage Device, Via Natural or Artificial Opening (ICD-10-PCS; 2020-12-03)
PROC: 0B9J8ZZ Drainage of Left Lower Lung Lobe, Via Natural or Artificial Opening Endoscopic (ICD-10-PCS; 2020-12-06)
PROC: 0B9C8ZZ Drainage of Right Upper Lung Lobe, Via Natural or Artificial Opening Endoscopic (ICD-10-PCS; 2020-12-06)
PROC: 0B9F8ZZ Drainage of Right Lower Lung Lobe, Via Natural or Artificial Opening Endoscopic (ICD-10-PCS; 2020-12-06)
PROC: 5A09357 Assistance with Respiratory Ventilation, Less than 24 Consecutive Hours, Continuous Positive Airway Pressure (ICD-10-PCS; 2020-12-10)
DX: A41.89 Other specified sepsis (principal); U07.1 COVID-19; J12.82 Pneumonia due to coronavirus disease 2019; J80 Acute respiratory distress syndrome; I26.99 Other pulmonary embolism without acute cor pulmonale; I21.A1 Myocardial infarction type 2; G93.41 Metabolic encephalopathy; D65 Disseminated intravascular coagulation [defibrination syndrome]; R04.2 Hemoptysis; E87.2 Acidosis; R65.20 Severe sepsis without septic shock; R73.9 Hyperglycemia, unspecified; T38.0X5A Adverse effect of glucocorticoids and synthetic analogues, initial encounter; F17.290 Nicotine dependence, other tobacco product, uncomplicated; I51.89 Other ill-defined heart diseases; R94.5 Abnormal results of liver function studies; R74.01 Elevation of levels of liver transaminase levels; R04.0 Epistaxis; R45.1 Restlessness and agitation; Z78.1 Physical restraint status; Z82.49 Family history of ischemic heart disease and other diseases of the circulatory system; Z83.49 Family history of other endocrine, nutritional and metabolic diseases
CPT/HCPCS: 31500; 31624; 36415; 36416; 36600; 51702; 71045; 71275; 80053; 80202; 81015; 82550; 82553; 82728; 82805; 83605; 83690; 83735; 83880; 84100; 84145; 84478; 84484; 85007; 85025; 85027; 85049; 85060; 85300; 85362; 85379; 85384; 85610; 85730; 86140; 86850; 86900; 86901; 87040; 87070; 87205; 93005; 93010; 94002; 94003; 94660; 96365; 96367; 96372; 96375; 99292; C9113; J0692; J1100; J1650; J1815; J1940; J2001; J2060; J2704; J3010; J3262; J3370; J3480; J3490; J7050; Q9961; Q9967; S0020

== ENCOUNTER 2021-04-08 21:35 | Emergency (ER) | payer BC ==
[2021-04-08] MEDS ORDERED: Lorazepam 2 MG/ML VIAL ONE (22:33)
[2021-04-08 22:43] LABS: #Basophils 0.1 thou/uL (0.0-0.2); #Eosinphils 0.5 thou/uL (0.0-0.7); #Lymphocytes 3.3 thou/uL (1.20-3.40); #Monocytes 0.8 thou/uL (0.11-0.59); #Neutrophils 5.4 thou/uL (1.40-6.50); %Eosinophils 4.7 % (0.0-10.0); %Lymphocytes 32.4 % (21.0-51.0); %Monocytes 8.3 % (0.0-10.0); %Neutrophils 53.6 % (42.0-75.0); Hemoglobin 16.7 g/dL (14.0-18.0); Mean Corpuscular HGB CONC 33.2 g/dL (32.0-36.0); Mean Corpuscular Hemoglobin 30.5 pg (27.0-31.0); Mean Corpuscular Volume 91.8 fL (78.0-98.0); Platelet Count 328 thou/uL (130-400); RBC Distribution Width 12.5 % (11.5-14.5); Red Blood Cell (RBC) Count 5.49 mill/uL (4.70-6.10); White Blood Cell (WBC) Count 10.1 thou/uL (4.8-10.8)
[2021-04-08 23:06] LABS: ALT (SGPT) 38 U/L (8-55); AST (SGOT) 20 U/L (5-34); Albumin 4.5 g/dL (3.5-5.0); Alkaline Phosphatase 100 U/L (40-110); Anion Gap 16 mmol/L (10-20); BUN (Urea Nitrogen) 14 mg/dL (8.9-20.6); Bilirubin, Total 0.4 mg/dL (0.2-1.2); Calc. Creatinine Clearance 0 mL/min (70-130); Calcium 9.3 mg/dL (7.8-10.44); Carbon Dioxide 21 mmol/L (22-29); Chloride 106 mmol/L (98-107); Globulin 3.2 g/dL (2.4-3.5); Glucose 118 mg/dL (70-105); Protein, Total 7.7 g/dL (6.0-8.3); Sodium 139 mmol/L (136-145)
== END 2021-04-08 23:19 | disposition home or self-care (01) ==
LOC: ERS 21:35
DX: I10 Essential (primary) hypertension (principal); Z86.16 Personal history of COVID-19; Z86.711 Personal history of pulmonary embolism; Z87.891 Personal history of nicotine dependence; Z79.01 Long term (current) use of anticoagulants; Z79.899 Other long term (current) drug therapy
CPT/HCPCS: 71045; 80053; 83880; 84484; 85025; 93005; 94760; 96374; J2060

== ENCOUNTER 2021-09-09 19:30 | Outpatient (CLI) | payer BC | END 2021-09-09 19:31 | disposition home or self-care (01) | LOC: SLEEPLAB 19:30 | PROVIDERS: ATTEND Internal Medicine | DX: G47.33 Obstructive sleep apnea (adult) (pediatric) (principal) | CPT/HCPCS: 95810 ==

== ENCOUNTER 2022-03-23 21:22 | Day surgery (SDC) | payer BC ==
[2022-03-23] MEDS ORDERED: Midazolam HCl 2 mg/2 ml Vial ONE (21:43)
[2022-03-23] MEDS ORDERED: Ondansetron PF 4 MG/2 ML Vial ONE (21:56)
[2022-03-23] MEDS ORDERED: Succinylcholine 200 MG/10 ml SYRINGE FS ONE (21:56)
[2022-03-23] MEDS ORDERED: Dexamethasone 20 MG/5 ML VIAL ONE (21:56)
[2022-03-23] MEDS ORDERED: Labetalol HCl 100 MG/20 ML VIAL ONE (21:56)
[2022-03-23] MEDS ORDERED: PROPOFOL 200 MG/20 ML VIAL ONE (21:56)
[2022-03-23] MEDS ORDERED: Ondansetron HCl/PF 4 MG/2 ML Vial IVP PRN (22:26)
[2022-03-23] MEDS ORDERED: Promethazine HCl 25 MG/ML VIAL IM PRN (22:26)
[2022-03-23] MEDS ORDERED: Ketorolac Tromethamine 30 MG/ML VIAL IVP PRN (22:26)
[2022-03-23] MEDS ORDERED: Promethazine HCl 25 MG/ML VIAL IVPB PRN (22:26)
== END 2022-03-23 23:10 | disposition home or self-care (01) ==
LOC: SDC 21:22
PROVIDERS: ATTEND Surgery
PROC: 0DC18ZZ Extirpation of Matter from Upper Esophagus, Via Natural or Artificial Opening Endoscopic (ICD-10-PCS; principal; 2022-03-23)
DX: T18.128A Food in esophagus causing other injury, initial encounter (principal); K22.2 Esophageal obstruction; I10 Essential (primary) hypertension; Z86.16 Personal history of COVID-19; Z86.711 Personal history of pulmonary embolism; Z79.899 Other long term (current) drug therapy; X58.XXXA Exposure to other specified factors, initial encounter
CPT/HCPCS: J1100; J2250; J2405; J2704